=== PATIENT | female | born 1955 | race Caucasian/White ===

== ENCOUNTER → 2016-10-04 | Outpatient (CLI) | payer BC ==
[~2016-10-04] MED LIST: ALMO1TAB PO; ALUM-30 PO; ANT25 PO; CPR500HP PO; DVN80 PO; IBUP-103 PO; INDSR/60 PO; LEVO75TA5; LORA10CA2 PO; PROP60CA5 PO; SYN75 UT; VALS-57 PO; VNCAQN NAE
[2016-10-04 13:27] LABS: BASO % 0.7 %; BASO ABS # 0.04 K/uL (0-0.2); COMPLETE YES; EOS % 2.4 %; HEMATOCRIT 38.5 % (37-47); IG% 0.2 %; LYMPH % 36.3 %; MEAN CELL VOLUME 88.1 fL (80-100); MEAN CORPUSCULAR HEMOGLOBIN 29.5 pg (25-34); MEAN CORPUSCULAR HGB CONC 33.5 g/dl (32-36); MEAN PLATELET VOLUME 10.5 fL (7.4-10.4); MONO % 7.4 %; PLATELET COUNT 314 K/uL (130-400); RED BLOOD COUNT 4.37 M/uL (4.2-5.4); WHITE BLOOD COUNT 5.78 K/uL (4.8-10.8)
[2016-10-04 14:08] LABS: ESTIMATED AVERAGE GLUCOSE 117 mg/dl; HA1C FLAG Normal (Normal)
[2016-10-04 14:13] LABS: BENZODIAZEPINE, URINE NEG (NEG); COCAINE,URINE NEG (NEG); PHENCYCLIDINE, URINE NEG (NEG)
[2016-10-04 14:56] LABS: ALT/SGPT 24 U/L (12-78); BLOOD UREA NITROGEN 9 mg/dl (7-18); BUN/CREATININE RATIO 9.7 (10-20); CARBON DIOXIDE 28 mmol/L (21-32); CHLORIDE 103 mmol/L (98-107); CHOLESTEROL 196 mg/dl (0-200); GLUCOSE 87 mg/dl (70-99); POTASSIUM 3.9 mmol/L (3.5-5.1); SODIUM 138 mmol/L (136-145); TRIGLYCERIDES 68 mg/dl (0-150); VERY LOW DENSITY LIPOPROT CALC 14 mg/dl
[2016-10-04 15:11] LABS: ALB/GLOB RATIO 1.2 (0.9-2); ALKALINE PHOSPHATASE 102 U/L (45-117); AST/SGOT 17 U/L (15-37); CHOLESTEROL/HDL RATIO 3.3; HDL CHOLESTEROL 59 mg/dl; LDL CHOLESTEROL CALCULATED 123 mg/dl
== END | disposition home or self-care (01) ==
LOC: C.LABMFLN 08:47
PROVIDERS: ATTEND Nurse Practitioner Adult Health
DX: E06.3 Autoimmune thyroiditis (principal); E78.5 Hyperlipidemia, unspecified; R73.9 Hyperglycemia, unspecified; I10 Essential (primary) hypertension; Z11.59 Encounter for screening for other viral diseases; Z51.81 Encounter for therapeutic drug level monitoring; Z79.899 Other long term (current) drug therapy

== ENCOUNTER → 2016-12-10 | Outpatient (CLI) | payer BC | END | disposition home or self-care (01) | LOC: C.PAPS 15:13 | PROVIDERS: ATTEND Nurse Practitioner Adult Health | DX: Z01.419 Encounter for gynecological examination (general) (routine) without abnormal findings (principal) ==

== ENCOUNTER 2017-01-04 20:45 | Emergency (ER) | payer BC ==
[~2017-01-04] VITALS: Ht 160 cm; Wt 74.7 kg
[~2017-01-04 20:45] MED LIST changes: -ANT25 PO; -CPR500HP PO; -INDSR/60 PO; -SYN75 UT; -VALS-57 PO
[2017-01-04 20:47] VITALS: TEMP 36.6; Ht 160 cm; Wt 74.7 kg
[2017-01-04] MEDS ORDERED: ANT25 PO (21:15)
[2017-01-04] MEDS ORDERED: VALS-57 PO (21:15)
[2017-01-04] MEDS ORDERED: ALMO1TAB PO (21:15)
[2017-01-04] MEDS ORDERED: SYN75 UT (21:15)
[2017-01-04] MEDS ORDERED: INDSR/60 PO (21:15)
[2017-01-04] MEDS ORDERED: CPR500HP PO (21:19)
[2017-01-04 21:30] LABS: URINE APPEARANCE CLEAR (CLEAR); URINE BILIRUBIN NEG (NEG); URINE COLOR YELLOW; URINE EPITHELIAL CELL AUTO 0-5 /lpf (0-5); URINE NITRITE NEG (NEG); URINE SPECIFIC GRAVITY 1.004 (1.000-1.030); UROBILINOGEN NEG (NEG); ZZUR CULT IF INDIC CLEAN CATCH NO
[2017-01-04 21:41] LABS: MANUAL MICROSCOPIC REQUIRED? NO; REVIEW REQ? NO
--- NOTE | 2017-01-04 22:17 | EMERGENCY ROOM VISIT NOTE ---
History Report prepared by Luc: Ridge Lee Under the Supervision of: Dr. Kristopher Mandujano M.D. First contact with patient: 21:53 Chief Complaint: URINARY SYMPTOMS Stated Complaint: BURNING, CHILLS, BACK ACHE Nursing Triage Summary: Urinary symptoms for the last six weeks Has been on 3 antibiotics History of Present Illness The patient is a 61 year old female who presents to the Emergency Room with complaints of intermittent dysuria beginning six weeks ago. The patient states that six weeks ago she went to the doctors and was diagnosed with a UTI. She reports that she was given Macrobid and thought it went away. The patient notes that she was on her way to [place] for vacation and still had the burning sensation. She states that she had to stop in [place], [place] and go to the ER where she had urine cultures. The patient reports that the culture had blood and puss in her urine and given clindamycin. She notes that she drove back to [place] and still had the symptoms so she went to the doctors. The patient states that she was given [place] [id number] [place]. She complains of abdominal and back pain. The patient denies diarrhea, hematozemia, a history of diverticulitis and lupus. 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 The patient reports that she has been using Monistat every night to rule out yeast infections. She notes that ever since she had H1N1 she had to stop taking her thyroid medication. Source of History: patient Onset: 6 weeks ago Position: other (urethra) Quality: burning Timing: intermittent Associated Symptoms: + abdominal pain, + back pain, No hematochezia, No diarrhea Review of Systems See HPI for pertinent positives & negatives. A total of 10 systems reviewed and were otherwise negative. Past Medical & Surgical Medical Problems: (1) Cholecystectomy (2) HYPERTENSION NOS (3) Hypothyroidism (4) Pericarditis (5) Tonsillectomy (6) [place] Teeth Removal Family History Patient reports no known family medical history. Social History Smoking Status: Never Smoker Alcohol Use: none Drug Use: none Marital Status: Occupation Status: employed Current/Historical Medications Scheduled Ciprofloxacin (Ciprofloxacin HCl), 1 DOSE PO BID Levothyroxine Sodium (Synthroid), 37.5-75 MG UT DAILY Loratadine (Claritin), 10 MG PO DAILY Propranolol Hcl (Propranolol ER), 60 MG PO DAILY Scheduled PRN Almotriptan Malate (Almotriptan Malate), 12.5 MG PO UD PRN for Migraine Alum & Mag Hydrox-Simethicone (Mylanta), 15 ML PO AMHS PRN for Heartburn Ibuprofen Tab (Advil), 400 MG PO Q4H PRN for Pain or Fever Meclizine HCl (Meclizine HCl), 25 MG PO TID PRN for Dizziness or Vertigo Valsartan (Valsartan), 80 MG PO DAILY PRN for Hypertension Allergies Coded Allergies: Hydrocortisone (Unverified Allergy, Mild, RASH, 08/01/14) Iodoquinol (Unverified Allergy, Mild, RASH, 08/01/14) Amoxicillin (Verified Allergy, Unknown, SWELLING, 09/30/12) Beef (Verified Allergy, Unknown, UNKNOWN, 09/30/12) Chocolate (Verified Allergy, Unknown, UNKNOWN, 09/30/12) Ciprofloxacin (Verified Allergy, Unknown, ELEVATED BP,MIGRAINE,SWEATING, ) Codeine (Verified Allergy, Unknown, BP DROPS, 08/01/14) Ketorolac Tromethamine (Verified Allergy, Unknown, "GIVES ME A BAD MIGRAINE", 08/01/14) Metoclopramide (Verified Allergy, Unknown, "MY BLOOD PRESSURE DROPS", ) Tetracycline (Verified Allergy, Unknown, ELVATED BP,SWEATING,MIGRAINE, 03/05) Wheat (Verified Allergy, Unknown, UNKNOWN, 09/30/12) Uncoded Allergies: TURKEY (Allergy, Unknown, MIGRAINE, 03/05/15) Physical Exam Vital Signs Date Time Temp Pulse Resp B/P (MAP) Pulse Ox O2 Delivery O2 Flow Rate FiO2 01/05/17 01:07 64 18 129/84 99 01/04/17 23:17 68 18 144/66 98 Room Air 01/04/17 20:47 36.6 72 18 185/95 94 Room Air Physical Exam GENERAL: Patient is anxious appearing and in mild distress. HEENT: No acute trauma, normocephalic atraumatic, mucous membranes moist, no nasal congestion, no scleral icterus. NECK: No stridor, no adenopathy, no meningismus, trachea is midline. LUNGS: No dyspnea. Clear to auscultation and equal bilaterally. No wheeze, no rhonchi. HEART: Regular rate and rhythm. No murmurs, rubs, gallops appreciated. ABDOMEN: Soft, suprapubic and bilateral lower abdomen are tender to palpation, bowel sounds positive, no masses appreciated, no peritonitis. BACK: No midline tenderness, no CVA tenderness EXTREMITIES: Normal motion all extremities, no cyanosis, no edema. NEUROLOGIC: Alert and oriented, no acute motor or sensory deficits, no focal weakness, cranial nerves grossly intact. SKIN: No rash, no jaundice, no diaphoresis. Medical Decision & Procedures ER Provider Diagnostic Interpretation: CT results as stated below per interpretation by me and the radiologist: CT ABDOMEN & PELVIS: Limited uncomplicated diverticulosis. Moderate colonic fecal retention. No bowel obstruction. Visualized appendix unremarkable: no pericecal inflammatory changes. No free air or fluid. Comparison study dated 04/09/2015 Radiologist: Darren Pringle MD Study ready at 2309 and initial results transmitted at 2333. Laboratory Results 01/04/17 22:35 Red Blood Count 4.30, Mean Corpuscular Volume 86.0, Mean Corpuscular Hemoglobin 29.5, Mean Corpuscular Hemoglobin Concent 34.3, Mean Platelet Volume 9.4, Neutrophils (%) (Auto) 76.3, Lymphocytes (%) (Auto) 17.8, Monocytes (%) (Auto) 4.8, Eosinophils (%) (Auto) 0.8, Basophils (%) (Auto) 0.1, Neutrophils # (Auto) 9.14, Lymphocytes # (Auto) 2.13, Monocytes # (Auto) 0.58, Eosinophils # (Auto) 0.09, Basophils # (Auto) 0.01 01/04/17 22:35 Test 01/04/17 20:55 01/04/17 22:35 01/04/17 22:43 Urine Color YELLOW Urine Appearance CLEAR (CLEAR) Urine pH 8.0 (4.5-7.5) Urine Specific [place] 1.004 (1.000-1.030) Urine Protein NEG (NEG) Urine Glucose (UA) NEG (NEG) Urine Ketones NEG (NEG) Urine Occult Blood NEG (NEG) Urine Nitrite NEG (NEG) Urine Bilirubin NEG (NEG) Urine Urobilinogen NEG (NEG) Urine Leukocyte Esterase TRACE (NEG) Urine WBC (Auto) 0 /hpf (0-5) Urine RBC (Auto) 0-4 /hpf (0-4) Urine Hyaline Casts (Auto) 0 /lpf (0-5) Urine Epithelial Cells (Auto) 0-5 /lpf (0-5) Urine Bacteria (Auto) NEG (NEG) White Blood Count 11.97 K/uL (4.8-10.8) Red Blood Count 4.30 M/uL (4.2-5.4) Hemoglobin 12.7 g/dL (12.0-16.0) Hematocrit 37.0 % (37-47) Mean Corpuscular Volume 86.0 fL (80-100) Mean Corpuscular Hemoglobin 29.5 pg (25-34) Mean Corpuscular Hemoglobin Concent 34.3 g/dl (32-36) Platelet Count 342 K/uL (130-400) Mean Platelet Volume 9.4 fL (7.4-10.4) Neutrophils (%) (Auto) 76.3 % Lymphocytes (%) (Auto) 17.8 % Monocytes (%) (Auto) 4.8 % Eosinophils (%) (Auto) 0.8 % Basophils (%) (Auto) 0.1 % Neutrophils # (Auto) 9.14 K/uL (1.4-6.5) Lymphocytes # (Auto) 2.13 K/uL (1.2-3.4) Monocytes # (Auto) 0.58 K/uL (0.11-0.59) Eosinophils # (Auto) 0.09 K/uL (0-0.5) Basophils # (Auto) 0.01 K/uL (0-0.2) RDW Standard Deviation 43.0 fL (36.4-46.3) RDW Coefficient of Variation 13.6 % (11.5-14.5) Immature Granulocyte % (Auto) 0.2 % Immature Granulocyte # (Auto) 0.02 K/uL (0.00-0.02) Erythrocyte Sedimentation Rate 9 mm/hr (0-21) Est Creatinine Clear Calc Drug Dose 74.3 ml/min Estimated GFR () 96.6 Estimated GFR (Non- 83.3 BUN/Creatinine Ratio 13.5 (10-20) Calcium Level 9.5 mg/dl (8.5-10.1) Total Bilirubin 0.3 mg/dl (0.2-1) Direct Bilirubin < 0.1 mg/dl (0-0.2) Aspartate Amino Transf (AST/SGOT) 18 U/L (15-37) Alanine Aminotransferase (ALT/SGPT) 23 U/L (12-78) Alkaline Phosphatase 104 U/L (45-117) C-Reactive Protein 0.35 mg/dl (0-0.29) Total Protein 7.1 gm/dl (6.4-8.2) Albumin 4.0 gm/dl (3.4-5.0) Lipase 98 U/L (73-393) Thyroid Stimulating Hormone (TSH) 22.300 uIu/ml (0.300-4.500) Free Thyroxine 0.98 ng/dl (0.80-1.60) Chemistry Specimen Hemolysis Bedside Hemoglobin 13.3 g/dl (12.0-16.0) Bedside Hematocrit 39 % (37-47) Bedside Sodium 131 mEq/L (135-144) Bedside Potassium 4.1 mEq/L (3.3-5.0) Bedside Chloride 96 mEq/L (101-112) Bedside Total CO2 25 mEq/l (24-31) Anion Gap 16.0 mmol/L (16-25) Bedside Blood Urea Nitrogen 11 mg/dl (7-18) Bedside Creatinine 0.8 mg/dl (0.6-1.3) Bedside Glucose (other) 107 mg/dl (70-99) Bedside Ionized Calcium ([place]) 1.16 mmol/l (1.12-1.32) Laboratory results as reviewed by me. ED Course 5: The patient was evaluated in room B04B. A complete history and physical exam was performed. 2311: I reevaluated the patient. She is sleeping. I spoke with case management, and they will help the patient follow up with fruit or nut picker for her chronic abdominal pain. 0053: Reevaluated the patient. Discussed results and discharge instructions: she verbalized understanding and agreement. The patient is ready for discharge. Medical Decision Differential: Appendicitis, Diverticulitis, PUD/Gastritis, Biliary Pathology, UTI, Pyelonephritis, Renal Colic, amongst other pathologies entertained. Medication Reconciliation: I attest that I have personally reviewed the patient 's current medication list. 61 yr old female arrives for evaluation of dysuria. Ongoing for 3 weeks with abx of macrobid, clinda and cipro used in suscession. Notes culture positive for strep 2 weeks [place] [id number] colonies. I suspect that that was skin li, though regardless she has been on abx for quite some time now. UA here is negative and consistent with some skin cells though no WBC nor nitrates nor bacteria noted. She notes erythema of pelvic region already evaluated by her PCP. Also already several doses of anti-fungals and has been using antifungal creams. I discussed fact she has some malar rash across bridge nose/cheeks, odd endocrine history, and significant allergies/reactions. I advised that this may be reactive, inflammatory, contact. Already used steroid cream without improvement. She has essentially normal labs, no evidence of intraabdominal/pelvic pathology (she notes father with bladder CA), and vitals are normal. I think at this time she should stop all medications. Keep area while cleansed, dry it well and then place barrier cream. She is comfortable with this plan. I have asked case management to touch base with patient and help get in with her Urologist as soon as possible. I noted that she may need Counter Clerk eval as well. At discharge patient asks that TSH/T4 checked which were ordered. She was already gone by time they returned, so I have asked Charge Nurse/Case management to contact patient with results in morning so that she can review them with her electric organ inspector and repairer. As always she is welcome to return at any time if worsening or other concerns. Impression Primary Impression: Dysuria Scribe Attestation The scribe's documentation has been prepared under my direction and personally reviewed by me in its entirety. I confirm that the note above accurately reflects all work, treatment, procedures, and medical decision making performed by me. Departure Information Dispostion Home / Self-Care Referrals Juju Pittman MD Patient Instructions ED Dysuria Uncertain Cause, My [facility]
[2017-01-04 22:55] LABS: ISTAT CREATININE 0.8 mg/dl (0.6-1.3); ISTAT HEMOGLOBIN 13.3 g/dl (12.0-16.0); ISTAT IONIZED CALCIUM 1.16 mmol/l (1.12-1.32)
[2017-01-04 23:01] LABS: BASO % 0.1 %; BASO ABS # 0.01 K/uL (0-0.2); COMPLETE YES; EOS % 0.8 %; IG% 0.2 %; LYMPH % 17.8 %; LYMPH ABS # 2.13 K/uL (1.2-3.4); MEAN CORPUSCULAR HEMOGLOBIN 29.5 pg (25-34); MEAN CORPUSCULAR HGB CONC 34.3 g/dl (32-36); MEAN PLATELET VOLUME 9.4 fL (7.4-10.4); MONO % 4.8 %; NEUT % 76.3 %; PLATELET COUNT 342 K/uL (130-400); WHITE BLOOD COUNT 11.97 K/uL (4.8-10.8)
[2017-01-04] MEDS ORDERED: OPTIRAY 320 IV PRN (23:15)
[2017-01-04 23:42] LABS: ALKALINE PHOSPHATASE 104 U/L (45-117); ALT/SGPT 23 U/L (12-78); AST/SGOT 18 U/L (15-37); BLOOD UREA NITROGEN 10 mg/dl (7-18); BUN/CREATININE RATIO 13.5 (10-20); C-REACTIVE PROTEIN 0.35 mg/dl (0-0.29); CALCIUM 9.5 mg/dl (8.5-10.1); CARBON DIOXIDE 26 mmol/L (21-32); CHLORIDE 98 mmol/L (98-107); CREATININE 0.77 mg/dl (0.60-1.20); GLUCOSE 98 mg/dl (70-99); POTASSIUM 4.2 mmol/L (3.5-5.1); SODIUM 134 mmol/L (136-145)
[2017-01-05 01:07] VITALS: BP 129/84; PULSE 64; O2SAT 99
--- NOTE | 2017-01-05 06:52 | DIAGNOSTIC IMAGING REPORT ---
ABDOMEN AND PELVIS CT WITH IV CONTRAST CT DOSE: 409.18 mGy.cm HISTORY: Pain lower abdominal/pelvic pain over last few weeks, worsening TECHNIQUE: Multiaxial CT images of the abdomen and pelvis were performed following the use of intravenous contrast. COMPARISON STUDY: 04/09/2015 FINDINGS: Lung bases are clear. Prior cholecystectomy. Liver enhances uniformly. Spleen is unremarkable. Moderate residual gastric content. Kidneys enhance uniformly. Moderate increase in fecal load throughout the colon. The appendix is normal. Mild chronic sigmoid diverticulosis. Bladder is midline. No free fluid within the pelvic cul-de-sac. IMPRESSION: 1. Moderate increase in fecal load throughout the colon. 2. No evidence for obstruction. 3. Appendix is normal. 4. Prior cholecystectomy. Electronically signed by: Jonathan Duarte M.D. 01/05/2017 6:51 AM Dictated Date/Time: 01/05/2017 6:48 AM
== END 2017-01-05 01:07 | disposition home or self-care (01) ==
LOC: C.EDB 20:46
DX: R30.0 Dysuria (principal); I10 Essential (primary) hypertension; E03.9 Hypothyroidism, unspecified; Z90.49 Acquired absence of other specified parts of digestive tract; Z98.890 Other specified postprocedural states; Z79.899 Other long term (current) drug therapy; Z88.1 Allergy status to other antibiotic agents; Z88.2 Allergy status to sulfonamides; Z88.5 Allergy status to narcotic agent; Z88.8 Allergy status to other drugs, medicaments and biological substances; Z91.018 Allergy to other foods

== ENCOUNTER → 2017-01-10 | Outpatient (CLI) | payer BC ==
[~2017-01-10] MED LIST changes: +ANT25 PO; +CPR500HP PO; -DVN80 PO; +INDSR/60 PO; -LEVO75TA5; -PROP60CA5 PO; +SYN75 UT; +VALS-57 PO; -VNCAQN NAE
[2017-01-10 18:38] LABS: URINE APPEARANCE CLEAR (CLEAR); URINE BILIRUBIN NEG (NEG); URINE COLOR YELLOW; URINE NITRITE NEG (NEG); URINE SPECIFIC GRAVITY 1.007 (1.000-1.030); UROBILINOGEN NEG (NEG)
[2017-01-10 19:26] LABS: MANUAL MICROSCOPIC REQUIRED? NO; REVIEW REQ? NO
== END | disposition home or self-care (01) ==
LOC: C.LABSPEC 17:34
PROVIDERS: ATTEND Nurse Practitioner Adult Health
DX: N39.0 Urinary tract infection, site not specified (principal)

== ENCOUNTER → 2017-01-14 | Outpatient (CLI) | payer BC ==
--- NOTE | 2017-01-14 13:30 | DIAGNOSTIC IMAGING REPORT ---
PELVIC COMPLETE NON OB CLINICAL HISTORY: 61 years-old Female presenting with PELVIC PAIN. TECHNIQUE: Real-time grayscale and color and spectral Doppler ultrasound imaging of the pelvis was performed first using a transabdominal probe and subsequently transvaginal for better characterization. COMPARISON: None. FINDINGS: Uterus: Normal. Retroflexed. The uterus measures 5.8 x 2.7 x 4.4 cm. Endometrial stripe measures 2 mm in thickness. Endometrium normal-appearing for the patient's age. Right adnexa: Right ovary not visualized Left adnexa: Left ovary not visualized Other: No free fluid. Bladder: Mildly trabeculated wall. IMPRESSION: 1. Normal uterus. Ovaries not visualized. 2. Trabeculated bladder wall could be seen in the setting of cystitis. Correlate with urinalysis. Electronically signed by: Samson Santana M.D. 01/14/2017 1:29 PM Dictated Date/Time: 01/14/2017 1:27 PM
== END | disposition home or self-care (01) ==
LOC: C.ULTR 12:37
PROVIDERS: ATTEND Nurse Practitioner Adult Health
DX: R10.2 Pelvic and perineal pain (principal); N32.89 Other specified disorders of bladder

== ENCOUNTER → 2017-05-30 | Outpatient (CLI) | payer BC ==
[2017-05-30 12:43] LABS: BASO % 0.7 %; BASO ABS # 0.04 K/uL (0-0.2); COMPLETE YES; EOS % 2.2 %; HEMATOCRIT 39.7 % (37-47); IG% 0.3 %; LYMPH % 31.1 %; LYMPH ABS # 1.84 K/uL (1.2-3.4); MEAN CELL VOLUME 90.8 fL (80-100); MEAN CORPUSCULAR HEMOGLOBIN 29.5 pg (25-34); MEAN CORPUSCULAR HGB CONC 32.5 g/dl (32-36); MEAN PLATELET VOLUME 9.7 fL (7.4-10.4); MONO % 7.3 %; NEUT % 58.4 %; PLATELET COUNT 311 K/uL (130-400); RED BLOOD COUNT 4.37 M/uL (4.2-5.4); WHITE BLOOD COUNT 5.92 K/uL (4.8-10.8)
[2017-05-30 13:08] LABS: ESTIMATED AVERAGE GLUCOSE 117 mg/dl; HA1C FLAG Normal (Normal)
[2017-05-30 13:30] LABS: BLOOD UREA NITROGEN 10 mg/dl (7-18); BUN/CREATININE RATIO 11.7 (10-20); CALCIUM 9.2 mg/dl (8.5-10.1); CARBON DIOXIDE 26 mmol/L (21-32); CHLORIDE 102 mmol/L (98-107); CREATININE 0.89 mg/dl (0.60-1.20); GLUCOSE 84 mg/dl (70-99); POTASSIUM 4.2 mmol/L (3.5-5.1); SODIUM 134 mmol/L (136-145)
[2017-05-30 13:40] LABS: C-REACTIVE PROTEIN < 0.29 mg/dl (0-0.29); CHOLESTEROL 206 mg/dl (0-200); CHOLESTEROL/HDL RATIO 2.6; HDL CHOLESTEROL 79 mg/dl; LDL CHOLESTEROL CALCULATED 116 mg/dl; RHEUMATOID FACTOR < 10.0 U/mL (0-15); TRIGLYCERIDES 54 mg/dl (0-150); VERY LOW DENSITY LIPOPROT CALC 11 mg/dl
[2017-05-30 13:58] LABS: LYME DISEASE AB IGG NEG (NEG); LYME DISEASE AB IGM NEG (NEG)
== END ==
LOC: C.LABMFLN 08:36
PROVIDERS: ATTEND Nurse Practitioner Adult Health
DX: R79.82 Elevated C-reactive protein (CRP) (principal); E06.3 Autoimmune thyroiditis; E78.5 Hyperlipidemia, unspecified; R73.9 Hyperglycemia, unspecified

== ENCOUNTER → 2017-07-29 | Outpatient (CLI) | payer OTHER ==
--- NOTE | 2017-08-01 07:39 | MAMMOGRAPHY REPORT ---
BILATERAL DIGITAL SCREENING MAMMOGRAM TOMOSYNTHESIS WITH CAD: 07/29/2017 CLINICAL HISTORY: Routine screening. Patient has no complaints. TECHNIQUE: Breast tomosynthesis in addition to standard 2D mammography was performed. Current study was also evaluated with a Computer Aided Detection (CAD) system. COMPARISON: Comparison is made to exams dated: 05/31/2016 mammogram, 05/27/2015 mammogram, and 011 mammogram - [facility]. BREAST COMPOSITION: There are scattered areas of fibroglandular density in both breasts. FINDINGS: No suspicious masses, calcifications, or areas of architectural distortion are noted in ei ther breast. There has been no significant interval change compared to prior exams. IMPRESSION: ACR BI-RADS CATEGORY 1: NEGATIVE There is no mammographic evidence of malignancy. A 1 year screening mammogram is recommended. The pa tient will receive written notification of the results. Approximately 10% of breast cancers are not detected with mammography. A negative mammographic report should not delay biopsy if a clinically suggestive mass is present. Roxana Becker M.D. ah/:07/29/2017 12:30:31 Licensed Plumber: Chrissy Chandler [facility] letter sent: Normal 1/2 BI-RADS Code: ACR BI-RADS Category 1: Negative
== END | disposition home or self-care (01) ==
LOC: C.MAMM 10:34
PROVIDERS: ATTEND Nurse Practitioner Adult Health
DX: Z12.31 Encounter for screening mammogram for malignant neoplasm of breast (principal)

== ENCOUNTER → 2017-10-26 | Outpatient (CLI) | payer OTHER ==
[~2017-10-26] MED LIST changes: +REGADENOSON 0.4 MG/5 ML SYR ONE
--- NOTE | 2017-10-26 23:48 | MYOCARDIAL PERFUSION SCAN ---
NUCLEAR STRESS TEST STUDY REQUESTED BY: Armando Estrada MD TYPE OF STUDY: ONE-DAY NUCLEAR MEDICINE TECHNETIUM-99M CARDIOLITE MYOCARDIAL PERFUSION SCAN. INDICATION: Exertional dyspnea/chest tightness. BASELINE ECHOCARDIOGRAM: Normal sinus rhythm at a ventricular rate of 70. No significant ST abnormalities. STRESS EKG: Negative stress EKG for ischemia. Exercised for 7 minutes achieving 10.1 METS reaching a peak heart rate of 144 or 90% of maximum % heart rate. Blood pressure roseann from 174/84-192/84. TECHNIQUE: For the stress portion of the study 32.0 mCi of technetium-99m Cardiolite IV was injected at 9:35 on 10/26/2017. Fifteen minutes following the injection, imaging was performed in multiple projections. For the rest portion of the study, 10.7 mCi of technetium-99m Cardiolite was injected IV at 7:35 a.m. One hour following the injection, imaging of the heart was performed in the same projections. FINDINGS: Rotating raw images were reviewed in detail. There was a large lateral breast shadow on both stress and rest images. There was minimal gut/liver uptake impacting the inferior imaging border of the heart. There is no significant extracardiac pathologic uptake. The short axis, vertical long axis, horizontal long axis images were reviewed in detail. There was normal myocardial perfusion with both stress and rest. No evidence of significant exercise-induced ischemia. LV size was normal with an end-diastolic volume of 44 mL. Calculated ejection fraction was 82% and there were no regional wall motion abnormalities. IMPRESSION: 1. Negative myocardial perfusion scan for exercise-induced ischemia. 2. Negative stress EKG for ischemia at 90% MPHR. 3. Above average functional capacity, exercised 7 minutes achieving 10.1 mets. 4. Normal LV size and function. Calculated EF of 82%.
== END | disposition home or self-care (01) ==
LOC: C.NUCL 07:00
PROVIDERS: ATTEND Internal Medicine Interventional Cardiology
DX: I25.10 Atherosclerotic heart disease of native coronary artery without angina pectoris (principal)

== ENCOUNTER → 2017-11-14 | Outpatient (CLI) | payer OTHER ==
[~2017-11-14] MED LIST changes: -REGADENOSON 0.4 MG/5 ML SYR ONE
== END | disposition home or self-care (01) ==
LOC: C.PATHSPEC 17:30
PROVIDERS: ATTEND Plastic Surgery
DX: L72.0 Epidermal cyst (principal); L57.0 Actinic keratosis